=== PATIENT | male | born 1970 | race Caucasian/White ===

== ENCOUNTER → 2017-08-03 | Day surgery (SDC) | payer BC ==
[~2017-08-03] MED LIST: FLU VACC QS2017-18 36 mo. & older 0.5 ML SYRINGE IM ONE
[2017-08-03 07:31] VITALS: TEMP 97.6; BMI 34.4
--- NOTE | 2017-08-03 09:40 | CT ---
LUMBAR SPINE CT MYELOGRAM: Date: 08/03/17 COMPARISON: 07/27/16. HISTORY: Bilateral lower extremity pain and radiculopathy. TECHNIQUE: Following the intrathecal administration of iodinated contrast media, serial axial CT imaging is obta ined at 2.5 mm intervals from the lower thoracic spine through the inferior aspect of the sacrum. Cor onal and sagittal reformatted imaging obtained. FINDINGS: The imaged lung bases are unremarkable. There is a small hiatal hernia noted. There is hypodensity of the imaged hepatic parenchyma suggesting a degree of steatosis. There is an e xophytic lesion emanating from the lower pole of the left kidney measuring approximately 3.2 cm, with Hounsfield units of approximately 35-40, not consistent with a simple cyst. This could represent a h yperdense cyst or a solid renal mass. There is a vague hypodense lesion in the upper pole of the left kidney as well, which may represent a small cyst in the 1.6 cm range. There is a vague hypodensity in the mid pole of the right kidney vineet suring 1.7 cm, nonspecific, with Hounsfield units slightly above that expected for a simple cyst. There are dorsal column stimulators present, entering the thecal sac at the L1-2 level, extending int o the region of the lower thoracic spine. There is no anterolisthesis or retrolisthesis noted. T12-L1: Intervertebral disc height is normal. No central canal or neural foraminal stenosis. L1-2: Intervertebral disc height is normal. No central canal or neural foraminal stenosis. L2-3: Intervertebral disc height is normal. No central canal or neural foraminal stenosis. L3-4: Intervertebral disc height is normal. No significant central canal or neural foraminal stenosis. Mini mal anterior osteophyte formation noted. L4-5: There is moderate bilateral facet hypertrophy and hypertrophy of the ligamentum flavum. Intervertebra l disc height appears normal. No significant central canal stenosis. Mild bilateral neural foraminal stenosis suspected. There are bilateral pedicle screws at L5 and S1 with vertically oriented interloc delfino rods. No evidence for hardware failure. L5-S1: Bilateral laminectomy changes are present. There is an intervertebral disc device present. There is m ildly prominent epidural fat at the L5-S1 level, stable. There is mild bilateral neural foraminal guillermo nosis. No significant central canal stenosis. No worrisome lytic or blastic bone lesion. IMPRESSION: 1. Postoperative changes within the lumbar spine as detailed above. There are mild areas of lower young mbar spine degenerative change, not significantly changed since prior imaging. 2. Renal lesions are noted bilaterally. This includes a possible solid renal mass emanating from the lower pole of the left kidney. This region was not imaged on the prior exam. Recommend further asses sment via CT of the abdomen with and without contrast using a renal mass protocol. CODE T. POS: ALBERTINA
--- NOTE | 2017-08-03 12:08 | RAD ---
LUMBAR SPINE MYELOGRAM: DATE: 08/03/17. COMPARISON: 07/27/16. HISTORY: Radiculopathy of bilateral lower extremities, prior lumbar spine surgery. FINDINGS: Informed consent for lumbar spine myelogram was obtained prior to the procedure. A spinal stimulating device is present on research assistant member imaging, generator overlying the soft tissues in the left buttock region, with leads entering the central canal at L1-2 and extending into the region of t he lower thoracic spine. Bilateral pedicle screws are present at L5 and S1 with vertically oriented interlocking rods. Bakari ctomy changes are noted at L5 and there is an intervertebral disk device at the L5-S level. Informed consent was obtained prior to the procedure. The patient was placed on the fluoroscopic tab le in the prone position and the skin overlying the lower lumbar spine was prepped and draped in norm al sterile fashion. The skin overlying the L5 vertebral body was anesthetized with 1% buffered Lidoc julio. With intermittent fluoroscopic guidance, a 22-gauge spinal needle was advanced into the thecal sac. Removal of the stylette yields clear cerebrospinal fluid. Approximately 10 cc of iodinated co ntrast media was then injected into the thecal sac outlining nerve roots of the cauda equina. The needle was removed. The patient tolerated the procedure well. The patient was sent to the CT sc deny for CT myelogram lumbar spine. EXPOSURE DATA: 1.0 minutes fluoroscopic time, 600.6 mGy*^m2. IMPRESSION: Postoperative changes within the lumbar spine. Successful lumbar spine myelogram. POS: ALBERTINA
== END ==
LOC: RAD 06:54
PROVIDERS: ATTEND Specialist
PROC: B01BYZZ Fluoroscopy of Spinal Cord using Other Contrast (ICD-10-PCS; principal; 2017-08-03)
DX: M54.17 Radiculopathy, lumbosacral region (principal); F31.9 Bipolar disorder, unspecified; G47.33 Obstructive sleep apnea (adult) (pediatric); E78.5 Hyperlipidemia, unspecified; L40.9 Psoriasis, unspecified; I10 Essential (primary) hypertension; Z79.891 Long term (current) use of opiate analgesic; Z79.899 Other long term (current) drug therapy; Z98.890 Other specified postprocedural states
CPT/HCPCS: 62304; 72132

== ENCOUNTER 2017-08-15 08:16 | Outpatient (CLI) | payer BC ==
--- NOTE | 2017-08-15 13:21 | CT ---
CT ABDOMEN AND PELVIS WITH AND WITHOUT IV CONTRAST UTILIZING A RENAL MASS PROTOCOL: INDICATIONS: History of renal mass identified on a lumbar myelogram exam, dated 08/03/2017. FINDINGS: No focal solid renal lesion is demonstrated. There is a lobulated appearance of both kidneys, likely explaining the appearance of a renal mass on the prior CT lumbar myelogram. There is a 1.9 cm cyst involving the superior pole of the left kidney. There is a 7.6 mm cyst involving the superior pole of the right kidney. There is a 2.1 cm cyst invol ving the right mid kidney. No hydronephrosis is evident. There is prominent fatty infiltration of the liver. There is a small hiatal hernia. The pancreas, adrenal glands, and spleen appear within normal limits. No enlarged lymph nodes or free fluid is evident. There is a normal appendix in the right lower quadrant. There is post surgical change of an interbody fusion at L5-S1. No acute fracture or subluxation is e vident. Small bone island involving the proximal left femur. There is a dorsal column stimulator ov erlying the left gluteal region, with leads entering into the spinal canal at L1-L2. Delayed phase i mages demonstrate no gross urothelial lesion. IMPRESSION: 1. Bilateral renal cysts. No solid renal lesion demonstrated. 2. Fatty liver. POS: ALBERTINA
[2017-08-15] MEDS ORDERED: Iopamidol 370 76% 100 ML VIAL ONE (15:09)
== END 2017-08-15 08:17 | disposition home or self-care (01) ==
LOC: CT 08:16
PROVIDERS: ATTEND Specialist
DX: N28.89 Other specified disorders of kidney and ureter (principal); N28.1 Cyst of kidney, acquired; K76.0 Fatty (change of) liver, not elsewhere classified
CPT/HCPCS: 74178; 82565